=== PATIENT | female | born 1980 | race Caucasian/White ===

== ENCOUNTER → 2016-12-13 | Outpatient (CLI) | payer OTHER | LOC: GRAD 11:38 | PROC: BP38Y0Z Magnetic Resonance Imaging (MRI) of Right Shoulder using Other Contrast, Unenhanced and Enhanced (ICD-10-PCS; principal; 2016-12-13) | DX: M25.511 Pain in right shoulder (principal); S43.491D Other sprain of right shoulder joint, subsequent encounter; X58.XXXD Exposure to other specified factors, subsequent encounter ==